=== PATIENT | female | born 1970 | race Caucasian/White ===

== ENCOUNTER 2017-09-26 08:41 | Emergency (ER) | payer MEDICAID ==
[~2017-09-26] VITALS: Ht 157.5 cm; Wt 88.1 kg
[2017-09-26] MEDS ORDERED: OxyCODONE HCL/ACETAMINOPHEN 5-325 MG TABLET PO ONE (11:45)
[2017-09-26 14:34] VITALS: BP 123/86
== END 2017-09-26 14:38 | disposition home or self-care (01) ==
LOC: EMS 08:43
DX: S70.01XA Contusion of right hip, initial encounter (principal); S20.211A Contusion of right front wall of thorax, initial encounter; J45.909 Unspecified asthma, uncomplicated; Z88.0 Allergy status to penicillin; W19.XXXA Unspecified fall, initial encounter; Y93.89 Activity, other specified; Y92.89 Other specified places as the place of occurrence of the external cause; Y99.8 Other external cause status
CPT/HCPCS: 73502; 99284

== ENCOUNTER 2018-03-20 10:30 | Emergency (ER) | payer MEDICAID, OTHER ==
[~2018-03-20] VITALS: Ht 157.5 cm; Wt 95.5 kg
[2018-03-20] MEDS ORDERED: IPRATROPIUM BROMIDE 0.5 MG/2.5 ML NEB SOLUTION NEB ONE ×2 (11:30→13:00)
[2018-03-20] MEDS ORDERED: PredniSONE 20 MG TABLET PO ONE (11:30)
[2018-03-20] MEDS ORDERED: ALBUTEROL SULFATE 5 MG/ML 20 ML NEB SOLN [BULK] NEB ONE (11:30)
[2018-03-20] MEDS ORDERED: ALBUTEROL SULFATE 2.5 MG/0.5 ML NEB SOLUTION NEB ONE (13:00)
[2018-03-20] MEDS ORDERED: KETOROLAC TROMETHAMINE 60 MG/2 ML VIAL IM ONE (13:15)
[2018-03-20 13:30] VITALS: BP 140/109
== END 2018-03-20 14:03 | disposition home or self-care (01) ==
LOC: EMS 10:31
DX: J45.909 Unspecified asthma, uncomplicated (principal); M19.90 Unspecified osteoarthritis, unspecified site; Z90.49 Acquired absence of other specified parts of digestive tract; Z88.0 Allergy status to penicillin
CPT/HCPCS: 94644; 96372; 99285; J1885; J7512; J7611; J7613; 94640

== ENCOUNTER 2018-04-18 14:36 | Emergency (ER) | payer OTHER ==
[~2018-04-18] VITALS: Ht 157.5 cm; Wt 89.1 kg
[2018-04-18] MEDS ORDERED: DICL25 PO (14:39)
[2018-04-18] MEDS ORDERED: AUD NEB (14:39)
[2018-04-18] MEDS ORDERED: IPRATROPIUM BROMIDE 0.5 MG/2.5 ML NEB SOLUTION NEB ONE ×2 (15:00→18:30)
[2018-04-18] MEDS ORDERED: ALBUTEROL SULFATE 5 MG/ML 20 ML NEB SOLN [BULK] NEB ONE ×2 (15:00→18:30)
[2018-04-18] MEDS ORDERED: 0.9% SODIUM CHLORIDE 5 ML NEB SOLUTION NEB ONE (15:07)
[2018-04-18] MEDS ORDERED: ACETAMINOPHEN 500 MG TABLET PO ONE (17:45)
[2018-04-18] MEDS ORDERED: DiphenhydrAMINE HCL 25 MG CAPSULE PO ONE (17:45)
[2018-04-18 19:51] VITALS: BP 141/86
== END 2018-04-18 20:00 | disposition home or self-care (01) ==
LOC: EMS 14:36
DX: J45.909 Unspecified asthma, uncomplicated (principal); R21 Rash and other nonspecific skin eruption; Z88.0 Allergy status to penicillin
CPT/HCPCS: 94644; 94645; 99285; J7611

== ENCOUNTER 2018-04-20 07:55 | Inpatient (IN) | payer OTHER ==
[~2018-04-20] VITALS: Ht 157.5 cm; Wt 89.0 kg
[~2018-04-20 07:55] MED LIST: AUD NEB; DICL25 PO
[2018-04-20] MEDS ORDERED: IPRATROPIUM BROMIDE 0.5 MG/2.5 ML NEB SOLUTION NEB ONE (08:30)
[2018-04-20] MEDS ORDERED: MethylPREDNISolone SOD SUCC 125 MG/2 ML VIAL IVP ONE (08:30)
[2018-04-20] MEDS ORDERED: ALBUTEROL SULFATE 2.5 MG/0.5 ML NEB SOLUTION NEB ONE (08:30)
[2018-04-20] MEDS ORDERED: 0.9% SODIUM CHLORIDE 5 ML NEB SOLUTION NEB ONE (08:57)
[2018-04-20] MEDS ORDERED: ALBUTEROL SULFATE 5 MG/ML 20 ML NEB SOLN [BULK] NEB ONE (09:00)
[2018-04-20 09:02] LABS: BASOPHILS % (AUTO) 0.1 % (0.0-2.0); EOSINOPHILS % (AUTO) 8.4 % (1.0-6.0); HEMATOCRIT 46.1 % (36-46); HEMOGLOBIN 16.2 g/dL (12.0-16.0); LYMPHOCYTES # (AUTO) 3.9 K/uL (1.0-4.8); LYMPHOCYTES % (AUTO) 36.3 % (22.0-44.0); MEAN CORPUSCULAR HEMOGLOBIN 30.8 pg (26.0-34.0); MEAN CORPUSCULAR HGB CONC 35.1 G/dL (31.0-37.0); MEAN CORPUSCULAR VOLUME 88 fL (80-100); MONOCYTES # (AUTO) 0.9 K/uL (0.1-1.0); MONOCYTES % (AUTO) 8.6 % (2.0-9.0); NEUTROPHILS % (AUTO) 46.6 % (40.0-70.0); PLATELET COUNT (AUTO) 251 K/uL (150-450); RED BLOOD CELL COUNT(AUTO) 5.24 MIL/uL (4.00-5.20); RED CELL DISTRIBUTION WIDTH 13.2 % (11.5-14.5)
[2018-04-20 09:03] LABS: ANION GAP 10 mmol/L (8-16); CALCIUM, TOTAL 8.7 mg/dL (8.8-10.5); CARBON DIOXIDE 25 mmol/L (22-29); CHLORIDE 105 mmol/L (98-107); CREATININE 0.73 mg/dL (0.60-1.30); GLOMERULAR FILTR. RATE CALC > 60 mL/min (>60); GLUCOSE,RANDOM 125 mg/dL (70-110); POTASSIUM 4.3 mmol/L (3.5-5.1); SODIUM SERUM 140 mmol/L (136-145); UREA NITROGEN, BLOOD 13 mg/dL (7-18)
[2018-04-20 09:09] LABS: ALANINE AMINOTRANSFERASE 54 U/L (12-78); ALBUMIN 3.5 g/dL (3.4-5.0); ALKALINE PHOSPHATASE 64 U/L (46-116); ASPARTATE AMINOTRANSFERASE 19 U/L (15-37); BILIRUBIN,TOTAL 0.4 mg/dL (0.1-1.0); TOTAL PROTEIN, SERUM 7.7 g/dL (6.4-8.2)
[2018-04-20 09:23] LABS: B-TYPE NATRIURETIC PEPTIDE < 5 pg/mL (0-100)
[2018-04-20] MEDS ORDERED: ONDANSETRON HCL 4 MG/2 ML VIAL IVP PRN ×2 (10:15→10:30)
[2018-04-20] MEDS ORDERED: 0.9% SODIUM CHLORIDE 10 ML SYRINGE IVP PRN (10:15)
[2018-04-20] MEDS ORDERED: ACETAMINOPHEN 325 MG TABLET PO PRN ×2 (10:15→10:30)
[2018-04-20] MEDS: OXYGEN THERAPY IH SCH ×4 (10:24→20:56)
[2018-04-20] MEDS ORDERED: IPRATROPIUM BROMIDE 0.5 MG/2.5 ML NEB SOLUTION NEB PRN (10:30)
[2018-04-20] MEDS ORDERED: BISACODYL 10 MG RECTAL RECTAL SUPPOSITORY PR PRN (10:30)
[2018-04-20] MEDS ORDERED: ALBUTEROL SULFATE 2.5 MG/0.5 ML NEB SOLUTION NEB PRN (10:30)
[2018-04-20] MEDS ORDERED: MAGNESIUM HYDROXIDE SUSPENSION 30 ML UDCUP PO PRN (10:30)
[2018-04-20] MEDS ORDERED: MORPHINE SULFATE 2 MG/ML SYRINGE IVP PRN (10:30)
[2018-04-20] MEDS: AZITHROMYCIN 500 MG/NS 250 ML IV SCH (11:01)
[2018-04-20] MEDS ORDERED: DICLOFENAC SODIUM 25 MG DR TABLET PO SCH (11:45)
[2018-04-20] MEDS: HYDROCODONE/ACETAMINOPHEN 5-325 MG TABLET PO PRN (11:55)
[2018-04-20] MEDS: MethylPREDNISolone SOD SUCC 125 MG/2 ML VIAL IVP SCH ×2 (11:55→17:10)
[2018-04-20 12:27] VITALS: BP 144/75
[2018-04-20] MEDS: ALBUTEROL SULFATE 2.5 MG/0.5 ML NEB SOLUTION NEB SCH ×2 (14:51→20:55)
[2018-04-20] MEDS: IPRATROPIUM BROMIDE 0.5 MG/2.5 ML NEB SOLUTION NEB SCH ×2 (14:51→20:55)
[2018-04-20 16:00] VITALS: BP 133/57
[2018-04-20] MEDS: BENZONATATE 100 MG CAPSULE PO SCH ×2 (17:11→20:25)
[2018-04-20] MEDS: HEPARIN SODIUM,PORCINE 5,000 UNITS/ML VIAL SQ SCH (17:11)
[2018-04-20] MEDS: MORPHINE SULFATE 4 MG/ML SYRINGE IVP PRN (17:11)
[2018-04-20 20:16] VITALS: BP 113/51
[2018-04-20] MEDS: DOCUSATE SODIUM 100 MG CAPSULE PO SCH (20:25)
[2018-04-20] MEDS: GuaiFENesin SR 600 MG ER TABLET PO SCH (20:25)
[2018-04-20] MEDS: BUDESONIDE 0.5 MG/2 ML NEB SOLUTION NEB SCH (20:55)
[2018-04-20] MEDS ORDERED: BENZONATATE 100 MG CAPSULE PO SCH (21:00)
[2018-04-21 00:18] VITALS: BP 120/66
[2018-04-21] MEDS: IPRATROPIUM BROMIDE 0.5 MG/2.5 ML NEB SOLUTION NEB SCH ×4 (02:10→20:12)
[2018-04-21] MEDS: ALBUTEROL SULFATE 2.5 MG/0.5 ML NEB SOLUTION NEB SCH ×4 (02:10→20:11)
[2018-04-21] MEDS: HYDROCODONE/ACETAMINOPHEN 5-325 MG TABLET PO PRN ×2 (02:14→20:30)
[2018-04-21] MEDS: HEPARIN SODIUM,PORCINE 5,000 UNITS/ML VIAL SQ SCH ×3 (02:15→18:02)
[2018-04-21] MEDS: MethylPREDNISolone SOD SUCC 125 MG/2 ML VIAL IVP SCH ×4 (02:16→18:02)
[2018-04-21 05:23] VITALS: BP 137/68
[2018-04-21] MEDS: BUDESONIDE 0.5 MG/2 ML NEB SOLUTION NEB SCH ×2 (07:28→20:12)
[2018-04-21] MEDS ORDERED: SODIUM CHLORIDE 0.9% 500 ML IV ONE (07:52)
[2018-04-21 08:10] VITALS: BP 118/63
[2018-04-21] MEDS: GuaiFENesin SR 600 MG ER TABLET PO SCH ×2 (08:11→20:29)
[2018-04-21] MEDS: BENZONATATE 100 MG CAPSULE PO SCH ×3 (08:11→20:27)
[2018-04-21] MEDS: DICLOFENAC SODIUM 25 MG DR TABLET PO SCH (08:12)
[2018-04-21] MEDS: DOCUSATE SODIUM 100 MG CAPSULE PO SCH ×2 (08:12→20:27)
[2018-04-21] MEDS: PANTOPRAZOLE SODIUM 40 MG DR TABLET PO SCH (08:12)
[2018-04-21] MEDS: AZITHROMYCIN 500 MG/NS 250 ML IV SCH (11:18)
[2018-04-21] MEDS: MORPHINE SULFATE 4 MG/ML SYRINGE IVP PRN (11:18)
[2018-04-21 11:36] VITALS: BP 124/70
[2018-04-21 15:37] VITALS: BP 137/74
[2018-04-21 20:20] VITALS: BP 125/73
[2018-04-21] MEDS: ZOLPIDEM TARTRATE 5 MG TABLET PO PRN (22:53)
[2018-04-22] VITALS (7 sets, daily range): BP systolic 107–145; BP diastolic 54–96
[2018-04-22] MEDS: HEPARIN SODIUM,PORCINE 5,000 UNITS/ML VIAL SQ SCH ×4 (01:08→23:13)
[2018-04-22] MEDS: MethylPREDNISolone SOD SUCC 40 MG/ML VIAL IVP SCH ×5 (01:08→23:15)
[2018-04-22] MEDS: IPRATROPIUM BROMIDE 0.5 MG/2.5 ML NEB SOLUTION NEB SCH ×3 (03:00→14:44)
[2018-04-22] MEDS: ALBUTEROL SULFATE 2.5 MG/0.5 ML NEB SOLUTION NEB SCH ×2 (03:00→09:09)
[2018-04-22 05:27] LABS: BASOPHILS % (AUTO) 0.1 % (0.0-2.0); EOSINOPHILS % (AUTO) 0 % (1.0-6.0); HEMATOCRIT 41.8 % (36-46); HEMOGLOBIN 14.7 g/dL (12.0-16.0); LYMPHOCYTES # (AUTO) 1.5 K/uL (1.0-4.8); LYMPHOCYTES % (AUTO) 6.4 % (22.0-44.0); MEAN CORPUSCULAR HEMOGLOBIN 30.9 pg (26.0-34.0); MEAN CORPUSCULAR HGB CONC 35.2 G/dL (31.0-37.0); MEAN CORPUSCULAR VOLUME 88 fL (80-100); MONOCYTES # (AUTO) 0.8 K/uL (0.1-1.0); MONOCYTES % (AUTO) 3.6 % (2.0-9.0); NEUTROPHILS # (AUTO) 20.6 K/uL (1.8-7.7); PLATELET COUNT (AUTO) 256 K/uL (150-450); RED BLOOD CELL COUNT(AUTO) 4.76 MIL/uL (4.00-5.20); RED CELL DISTRIBUTION WIDTH 12.9 % (11.5-14.5)
[2018-04-22 05:32] LABS: NEUTROPHILS % (AUTO) 89.9 % (40.0-70.0)
[2018-04-22 05:33] LABS: ANION GAP 10 mmol/L (8-16); CALCIUM, TOTAL 8.5 mg/dL (8.8-10.5); CARBON DIOXIDE 25 mmol/L (22-29); CHLORIDE 106 mmol/L (98-107); CREATININE 0.78 mg/dL (0.60-1.30); GLOMERULAR FILTR. RATE CALC > 60 mL/min (>60); GLUCOSE,RANDOM 203 mg/dL (70-110); POTASSIUM 4.2 mmol/L (3.5-5.1); SODIUM SERUM 141 mmol/L (136-145); UREA NITROGEN, BLOOD 13 mg/dL (7-18)
[2018-04-22] MEDS: OXYGEN THERAPY IH SCH ×2 (08:00→20:00)
[2018-04-22] MEDS: DICLOFENAC SODIUM 25 MG DR TABLET PO SCH (08:42)
[2018-04-22] MEDS: PANTOPRAZOLE SODIUM 40 MG DR TABLET PO SCH (08:43)
[2018-04-22] MEDS: BENZONATATE 100 MG CAPSULE PO SCH ×3 (08:43→20:05)
[2018-04-22] MEDS: DOCUSATE SODIUM 100 MG CAPSULE PO SCH ×2 (08:43→20:04)
[2018-04-22] MEDS: GuaiFENesin SR 600 MG ER TABLET PO SCH ×2 (08:43→20:05)
[2018-04-22] MEDS: BUDESONIDE 0.5 MG/2 ML NEB SOLUTION NEB SCH ×2 (09:09→20:25)
[2018-04-22] MEDS: AZITHROMYCIN 500 MG/NS 250 ML IV SCH (11:31)
[2018-04-22 12:28] LABS: GLUCOMETER DEV NAME(LOC) 6N 2D; GLUCOSE,POINT OF CARE 282 MG/DL (70-110)
[2018-04-22] MEDS ORDERED: LEVALBUTEROL HCL 0.63 MG/3 ML NEB SOLUTION NEB PRN (14:00)
[2018-04-22] MEDS ORDERED: LEVALBUTEROL HCL 0.63 MG/3 ML NEB SOLUTION NEB SCH (14:00)
[2018-04-22] MEDS: HYDROCODONE/ACETAMINOPHEN 5-325 MG TABLET PO PRN (15:44)
[2018-04-22] MEDS: ASPIRIN/ACETAMINOPHEN/CAFFEINE 250-250-65 MG TABLET PO PRN (17:56)
[2018-04-22] MEDS: IPRATROPIUM BROMIDE 0.5 MG/2.5 ML NEB SOLUTION NEB PRN (20:21)
[2018-04-22] MEDS: LEVALBUTEROL HCL 0.63 MG/3 ML NEB SOLUTION NEB PRN (20:21)
[2018-04-22] MEDS: ZOLPIDEM TARTRATE 5 MG TABLET PO PRN (23:13)
[2018-04-23] MEDS: MethylPREDNISolone SOD SUCC 40 MG/ML VIAL IVP SCH ×3 (06:00→18:11)
[2018-04-23 06:04] LABS: BASOPHILS % (AUTO) 0.4 % (0.0-2.0); EOSINOPHILS % (AUTO) 0 % (1.0-6.0); HEMATOCRIT 41.1 % (36-46); HEMOGLOBIN 14.4 g/dL (12.0-16.0); LYMPHOCYTES % (AUTO) 11.4 % (22.0-44.0); MEAN CORPUSCULAR HEMOGLOBIN 30.6 pg (26.0-34.0); MEAN CORPUSCULAR VOLUME 87 fL (80-100); MONOCYTES # (AUTO) 0.7 K/uL (0.1-1.0); MONOCYTES % (AUTO) 3.8 % (2.0-9.0); NEUTROPHILS # (AUTO) 14.8 K/uL (1.8-7.7); NEUTROPHILS % (AUTO) 84.4 % (40.0-70.0); PLATELET COUNT (AUTO) 237 K/uL (150-450); RED BLOOD CELL COUNT(AUTO) 4.71 MIL/uL (4.00-5.20); RED CELL DISTRIBUTION WIDTH 12.9 % (11.5-14.5)
[2018-04-23 06:15] VITALS: BP 118/62
[2018-04-23 06:18] LABS: ANION GAP 7 mmol/L (8-16); CALCIUM, TOTAL 8.2 mg/dL (8.8-10.5); CARBON DIOXIDE 27 mmol/L (22-29); CHLORIDE 105 mmol/L (98-107); CREATININE 0.77 mg/dL (0.60-1.30); GLOMERULAR FILTR. RATE CALC > 60 mL/min (>60); GLUCOSE,RANDOM 220 mg/dL (70-110); POTASSIUM 4.2 mmol/L (3.5-5.1); SODIUM SERUM 139 mmol/L (136-145); UREA NITROGEN, BLOOD 16 mg/dL (7-18)
[2018-04-23 07:24] VITALS: BP 126/84
[2018-04-23] MEDS: OXYGEN THERAPY IH SCH ×2 (08:00→20:00)
[2018-04-23] MEDS: BUDESONIDE 0.5 MG/2 ML NEB SOLUTION NEB SCH ×2 (08:21→20:40)
[2018-04-23] MEDS: LEVALBUTEROL HCL 0.63 MG/3 ML NEB SOLUTION NEB PRN ×2 (08:22→20:40)
[2018-04-23] MEDS: HEPARIN SODIUM,PORCINE 5,000 UNITS/ML VIAL SQ SCH ×2 (08:23→16:52)
[2018-04-23] MEDS: BENZONATATE 100 MG CAPSULE PO SCH ×3 (08:25→21:12)
[2018-04-23] MEDS: PANTOPRAZOLE SODIUM 40 MG DR TABLET PO SCH (08:25)
[2018-04-23] MEDS: DICLOFENAC SODIUM 25 MG DR TABLET PO SCH (08:26)
[2018-04-23] MEDS: ASPIRIN/ACETAMINOPHEN/CAFFEINE 250-250-65 MG TABLET PO PRN ×2 (08:26→16:51)
[2018-04-23] MEDS: DOCUSATE SODIUM 100 MG CAPSULE PO SCH (08:27)
[2018-04-23] MEDS: GuaiFENesin SR 600 MG ER TABLET PO SCH ×2 (08:27→21:12)
[2018-04-23] MEDS ORDERED: PredniSONE 20 MG TABLET PO SCH (09:00)
[2018-04-23] MEDS: GuaiFENesin/CODEINE [SUGAR FREE] 200-20MG/10 ML SYRUP UDCUP PO SCH ×2 (10:59→16:55)
[2018-04-23] MEDS: AZITHROMYCIN 500 MG/NS 250 ML IV SCH (10:59)
[2018-04-23 11:00] VITALS: BP 121/74
[2018-04-23] MEDS ORDERED: IPRATROPIUM BROMIDE 0.5 MG/2.5 ML NEB SOLUTION NEB SCH (11:00)
[2018-04-23] MEDS ORDERED: ALBUTEROL SULFATE 2.5 MG/0.5 ML NEB SOLUTION NEB SCH (11:00)
[2018-04-23] MEDS ORDERED: GUAI600T50 PO (14:52)
[2018-04-23] MEDS ORDERED: IPRATROPIUM BROMIDE 0.5 MG/2.5 ML NEB SOLUTION NEB PRN (15:00)
[2018-04-23] MEDS ORDERED: ALBUTEROL SULFATE 2.5 MG/0.5 ML NEB SOLUTION NEB PRN (15:00)
[2018-04-23 15:33] VITALS: BP 116/62
[2018-04-23 19:49] VITALS: BP 130/76
[2018-04-23] MEDS: IPRATROPIUM BROMIDE 0.5 MG/2.5 ML NEB SOLUTION NEB PRN (20:40)
[2018-04-23] MEDS: DOCUSATE SODIUM 250 MG CAPSULE PO SCH (21:12)
[2018-04-23] MEDS: ZOLPIDEM TARTRATE 5 MG TABLET PO PRN (21:14)
[2018-04-23 23:27] VITALS: BP 109/65
[2018-04-24] MEDS: HEPARIN SODIUM,PORCINE 5,000 UNITS/ML VIAL SQ SCH ×3 (00:08→15:55)
[2018-04-24] MEDS: GuaiFENesin/CODEINE [SUGAR FREE] 200-20MG/10 ML SYRUP UDCUP PO SCH ×3 (00:08→15:55)
[2018-04-24] MEDS: MethylPREDNISolone SOD SUCC 40 MG/ML VIAL IVP SCH ×3 (00:09→10:59)
[2018-04-24 04:16] VITALS: BP 115/65
[2018-04-24 06:27] LABS: BASOPHILS % (AUTO) 0.1 % (0.0-2.0); EOSINOPHILS % (AUTO) 0 % (1.0-6.0); HEMOGLOBIN 15.9 g/dL (12.0-16.0); LYMPHOCYTES # (AUTO) 2.5 K/uL (1.0-4.8); LYMPHOCYTES % (AUTO) 19.9 % (22.0-44.0); MEAN CORPUSCULAR HEMOGLOBIN 30.9 pg (26.0-34.0); MEAN CORPUSCULAR HGB CONC 35.3 G/dL (31.0-37.0); MEAN CORPUSCULAR VOLUME 88 fL (80-100); MONOCYTES # (AUTO) 0.6 K/uL (0.1-1.0); MONOCYTES % (AUTO) 4.6 % (2.0-9.0); NEUTROPHILS # (AUTO) 9.3 K/uL (1.8-7.7); NEUTROPHILS % (AUTO) 75.4 % (40.0-70.0); PLATELET COUNT (AUTO) 270 K/uL (150-450); RED BLOOD CELL COUNT(AUTO) 5.13 MIL/uL (4.00-5.20)
[2018-04-24 06:39] LABS: ANION GAP 8 mmol/L (8-16); CALCIUM, TOTAL 8.6 mg/dL (8.8-10.5); CARBON DIOXIDE 27 mmol/L (22-29); CHLORIDE 102 mmol/L (98-107); CREATININE 0.82 mg/dL (0.60-1.30); GLOMERULAR FILTR. RATE CALC > 60 mL/min (>60); GLUCOSE,RANDOM 225 mg/dL (70-110); POTASSIUM 4.4 mmol/L (3.5-5.1); SODIUM SERUM 137 mmol/L (136-145); UREA NITROGEN, BLOOD 17 mg/dL (7-18)
[2018-04-24] MEDS: OXYGEN THERAPY IH SCH (08:00)
[2018-04-24 08:10] VITALS: BP 130/72
[2018-04-24] MEDS: BENZONATATE 100 MG CAPSULE PO SCH ×2 (08:15→15:55)
[2018-04-24] MEDS: GuaiFENesin SR 600 MG ER TABLET PO SCH (08:15)
[2018-04-24] MEDS: PANTOPRAZOLE SODIUM 40 MG DR TABLET PO SCH (08:15)
[2018-04-24] MEDS: DOCUSATE SODIUM 250 MG CAPSULE PO SCH (08:15)
[2018-04-24] MEDS: DICLOFENAC SODIUM 25 MG DR TABLET PO SCH (08:15)
[2018-04-24] MEDS: LEVALBUTEROL HCL 0.63 MG/3 ML NEB SOLUTION NEB PRN (08:23)
[2018-04-24] MEDS: IPRATROPIUM BROMIDE 0.5 MG/2.5 ML NEB SOLUTION NEB PRN (08:24)
[2018-04-24] MEDS: BUDESONIDE 0.5 MG/2 ML NEB SOLUTION NEB SCH (08:24)
[2018-04-24] MEDS: AZITHROMYCIN 500 MG/NS 250 ML IV SCH (11:00)
[2018-04-24 11:28] VITALS: BP 131/81
[2018-04-24] MEDS ORDERED: BISACODYL 10 MG RECTAL RECTAL SUPPOSITORY PR ONE (13:30)
[2018-04-24] MEDS ORDERED: BENZ-51 PO (15:11)
[2018-04-24] MEDS ORDERED: DOCU250C91 PO (15:12)
[2018-04-24] MEDS ORDERED: GUAIF10 PO (15:13)
[2018-04-24] MEDS ORDERED: PRED20 PO (15:16)
[2018-04-24] MEDS ORDERED: OMEP20 PO (15:19)
[2018-04-24] MEDS ORDERED: LEVA0.6319 NEB (15:20)
[2018-04-24 15:56] VITALS: BP 123/68
== END 2018-04-24 18:10 | disposition home or self-care (01) | DRG 141 ==
LOC: EMS 07:56 → 6N 10:47
PROVIDERS: ADMIT Internal Medicine; ATTEND Internal Medicine
DX: J45.901 Unspecified asthma with (acute) exacerbation (principal); J98.11 Atelectasis; J45.902 Unspecified asthma with status asthmaticus; E66.9 Obesity, unspecified; Z90.49 Acquired absence of other specified parts of digestive tract; Z88.0 Allergy status to penicillin; Z79.899 Other long term (current) drug therapy; Z68.35 Body mass index [BMI] 35.0-35.9, adult
CPT/HCPCS: 70450; 93005; 94060; 94640; 94644; 96365; 96374; 99285; J0456; J1644; J2270; J2920; J2930; J7040